=== PATIENT | female | born 1985 | race Caucasian/White ===

== ENCOUNTER 2017-10-23 21:30 | Emergency (ER) | payer MEDICAID ==
[~2017-10-23] VITALS: Ht 160 cm; Wt 60.4 kg
[~2017-10-23 21:30] MED LIST: ALBU6.7H INH; MELO-100 PO; NEOM10SO4 EACH EAR
[2017-10-23] MEDS ORDERED: TOBR5DRO2 LEFTEYE (22:11)
[2017-10-23 22:20] VITALS: BP 121/66
== END 2017-10-23 22:21 | disposition home or self-care (01) ==
LOC: ER 21:30
DX: H01.001 Unspecified blepharitis right upper eyelid (principal); H10.9 Unspecified conjunctivitis; F15.90 Other stimulant use, unspecified, uncomplicated; J45.909 Unspecified asthma, uncomplicated; Z90.49 Acquired absence of other specified parts of digestive tract; Z79.899 Other long term (current) drug therapy
CPT/HCPCS: 99283

== ENCOUNTER 2018-04-01 22:37 | Emergency (ER) | payer MEDICAID ==
[~2018-04-01] VITALS: Ht 157.5 cm; Wt 59.0 kg
[~2018-04-01 22:37] MED LIST changes: +TOBR5DRO2 LEFTEYE
[2018-04-01 22:40] VITALS: BP 113/65
[2018-04-01 23:24] LABS: URINE HCG NEGATIVE (NEG)
[2018-04-01] MEDS ORDERED: ondansetron/PF 4mg/2ml inj IV ONE (23:30)
[2018-04-01] MEDS ORDERED: morphine 4 MG/ML inj SYRINge IV PRN (23:30)
[2018-04-01] MEDS ORDERED: normal saline 1000ML IV soln IVB ONE (23:30)
[2018-04-01 23:51] LABS: BASOPHILS % (AUTO) 0.3 % (0-1); EOSINOPHILS # (AUTO) 0.3 X10'3 (0-0.9); EOSINOPHILS % (AUTO) 2.5 % (0-6); HEMATOCRIT 35.1 % (35.0-45.0); HEMOGLOBIN 11.8 g/dl (12.0-16.0); LYMPHOCYTES % (AUTO) 8.3 % (21-51); MEAN CORPUSCULAR HEMOGLOBIN 28.8 PG (27.0-31.0); MEAN CORPUSCULAR HGB CONC 33.7 % (33.0-36.5); MEAN CORPUSCULAR VOLUME 85.6 FL (78-98); MEAN PLATELET VOLUME 7.4 FL (7.4-10.4); MONOCYTES # (AUTO) 0.9 X10'3 (0-0.9); MONOCYTES % (AUTO) 8.3 % (2-12); NEUTROPHILS # (AUTO) 9.2 X10'3 (1.8-7.7); NEUTROPHILS % (AUTO) 80.6 % (42-75); PLATELET COUNT 333 X10'3 (140-440); RED CELL DISTRIBUTION WIDTH 13.2 % (11.5-14.5); WHITE BLOOD COUNT 11.5 X10'3 (4.5-11.0)
[2018-04-02 00:07] LABS: ALANINE AMINOTRANSFERASE 10 U/L (12-78); ALBUMIN 3.2 G/DL (3.4-5.0); ALBUMIN/GLOBULIN RATIO 0.8 (1.1-1.5); ALKALINE PHOSPHATASE 50 IU/L (46-116); ANION GAP 7 (8-16); ASPARTATE AMINO TRANSFERASE 10 U/L (10-37); BILIRUBIN,TOTAL 0.2 MG/DL (0.1-1.0); BLOOD UREA NITROGEN 11 MG/DL (7-18); BUN/CREATININE RATIO 15.5 (6.6-38.0); CALCIUM 8.3 MG/DL (8.5-10.1); CHLORIDE 100 MMOL/L (99-107); CREATININE 0.71 MG/DL (0.40-0.90); GLUCOSE 124 MG/DL (70-104); LIPASE 87 U/L (73-393); POTASSIUM 3.9 MMOL/L (3.5-5.1); SODIUM 134 MMOL/L (135-145); TOTAL CARBON DIOXIDE 26.8 MMOL/L (24-32); TOTAL PROTEIN 7.4 G/DL (6.4-8.2); eGFR > 90 ML/MIN
[2018-04-02] MEDS ORDERED: ONDA4TAB6 PO (01:16)
[2018-04-02] MEDS ORDERED: OMEP20CA10 PO (01:16)
== END 2018-04-02 01:52 | disposition home or self-care (01) ==
LOC: ER 22:39
DX: R10.13 Epigastric pain (principal); R10.12 Left upper quadrant pain; R10.32 Left lower quadrant pain; R10.84 Generalized abdominal pain; F15.90 Other stimulant use, unspecified, uncomplicated; J45.909 Unspecified asthma, uncomplicated; Z90.49 Acquired absence of other specified parts of digestive tract; Z79.899 Other long term (current) drug therapy
CPT/HCPCS: 36415; 74176; 80053; 81025; 83690; 85025; 96374; 96375; 99284; J2270; J2405; J7030

== ENCOUNTER 2018-04-28 17:14 | Emergency (ER) | payer MEDICAID ==
[~2018-04-28] VITALS: Ht 160 cm; Wt 61.8 kg
[~2018-04-28 17:14] MED LIST changes: +OMEP20CA10 PO; +ONDA4TAB6 PO
[2018-04-28] MEDS ORDERED: AMOX500C2 PO (17:55)
[2018-04-28 18:03] VITALS: BP 127/76
== END 2018-04-28 18:04 | disposition home or self-care (01) ==
LOC: ER 17:14
DX: H92.01 Otalgia, right ear (principal); J45.909 Unspecified asthma, uncomplicated; F15.90 Other stimulant use, unspecified, uncomplicated; Z90.49 Acquired absence of other specified parts of digestive tract; Z79.899 Other long term (current) drug therapy
CPT/HCPCS: 99283

== ENCOUNTER 2020-04-03 16:59 | Emergency (ER) | payer MEDICAID ==
[~2020-04-03] VITALS: Ht 160 cm; Wt 130.0 kg
[~2020-04-03 16:59] MED LIST changes: -ALBU6.7H INH; +ALBU6.7H9 INH; -OMEP20CA10 PO; +OMEP20CA15 PO
[2020-04-03 17:06] VITALS: BP 133/83
[2020-04-03] MEDS ORDERED: METH4TAB81 PO (17:17)
[2020-04-03] MEDS ORDERED: ONDA4TAB6 PO (17:17)
[2020-04-03] MEDS ORDERED: HYDR-3965 PO (17:17)
[2020-04-03] MEDS ORDERED: AMOX500C2 PO (17:17)
== END 2020-04-03 17:29 | disposition home or self-care (01) ==
LOC: ER 16:59
DX: K08.89 Other specified disorders of teeth and supporting structures (principal); K02.9 Dental caries, unspecified; K04.7 Periapical abscess without sinus; K04.1 Necrosis of pulp; J45.909 Unspecified asthma, uncomplicated; F15.90 Other stimulant use, unspecified, uncomplicated; Z90.89 Acquired absence of other organs; Z72.89 Other problems related to lifestyle; Z79.2 Long term (current) use of antibiotics; Z79.899 Other long term (current) drug therapy
CPT/HCPCS: 99283

== ENCOUNTER 2020-07-06 10:01 | Emergency (ER) | payer MEDICAID ==
[~2020-07-06 10:01] MED LIST changes: +METH4TAB81 PO
--- NOTE | 2020-07-06 10:19 | NUR ---
Pt taken to ambulance bay decon shower to be decontaminated. EMT went back into department briefly. When RN returned to ambulance bay, pt's friend stated that the pt no longer wished to be seen. Leaving prior to being triaged.
--- NOTE | 2020-07-06 10:34 | NUR ---
Called patient after patient not being outside in the ambulance bay awaiting triage. Patient stated that "its [id number], but i'm ok." I told her that if at any point she still needed to be seen to come back to ED. Patient agreed. Dr. Mcnamara aware.
== END 2020-07-06 10:35 | disposition left against medical advice (07) ==
LOC: ER 10:02
DX: H57.10 Ocular pain, unspecified eye (principal); Z53.21 Procedure and treatment not carried out due to patient leaving prior to being seen by health care provider

== ENCOUNTER 2021-05-03 13:28 | Emergency (ER) | payer MEDICAID ==
[~2021-05-03] VITALS: Ht 157.5 cm; Wt 59.1 kg
[2021-05-03 13:40] VITALS: BP 103/75
[2021-05-03] MEDS ORDERED: ALBU18HF2 INH (14:42)
[2021-05-03] MEDS ORDERED: PSEU120T84 PO (14:42)
== END 2021-05-03 17:02 | disposition home or self-care (01) ==
LOC: ER 13:29
DX: J20.9 Acute bronchitis, unspecified (principal); J45.909 Unspecified asthma, uncomplicated; F15.90 Other stimulant use, unspecified, uncomplicated; Z90.49 Acquired absence of other specified parts of digestive tract; Z72.89 Other problems related to lifestyle; Z79.899 Other long term (current) drug therapy; Z79.2 Long term (current) use of antibiotics
CPT/HCPCS: 99283

== ENCOUNTER 2023-04-19 20:15 | Emergency (ER) | payer OTHER, MEDICAID ==
[~2023-04-19] VITALS: Ht 160 cm; Wt 63.6 kg
[~2023-04-19 20:15] MED LIST changes: +ALBU18HF2 INH; +ALBU6.7H14 INH; -ALBU6.7H9 INH; +PSEU120T84 PO
[2023-04-19 20:26] VITALS: BP 129/82; PULSE 86; TEMP 98.4; O2SAT 100
[2023-04-19] MEDS ORDERED: ketorolac trometh inj. 60 MG/2 ML VIAL IM ONE (21:55)
[2023-04-19 22:00] VITALS: RESP 16
[2023-04-19] MEDS ORDERED: IBUP-1985 PO (22:04)
[2023-04-19] MEDS ORDERED: BACL10TA2 PO (22:04)
== END 2023-04-19 22:10 | disposition home or self-care (01) ==
LOC: ER 20:16
DX: S13.4XXA Sprain of ligaments of cervical spine, initial encounter (principal); M25.512 Pain in left shoulder; J45.909 Unspecified asthma, uncomplicated; F07.81 Postconcussional syndrome; F15.90 Other stimulant use, unspecified, uncomplicated; Z72.89 Other problems related to lifestyle; Z79.899 Other long term (current) drug therapy; V89.2XXA Person injured in unspecified motor-vehicle accident, traffic, initial encounter; Y93.89 Activity, other specified; Y92.89 Other specified places as the place of occurrence of the external cause; Y99.8 Other external cause status
CPT/HCPCS: 96372; 99283; J1885